=== PATIENT | male | born 1960 | race Caucasian/White ===

== ENCOUNTER 2019-08-02 10:24 | Day surgery (SDC) | payer BC ==
[2019-08-02] MEDS ORDERED: PROPOFOL 10 MG/ML VIAL IV ONE (10:25)
[2019-08-02] MEDS ORDERED: LIDOCAINE 2% MDV (20MG/ML) 20ML VIAL IV ONE (10:25)
--- NOTE | 2019-08-03 11:10 | Operative Note ---
OPERATION: COLONOSCOPY to the cecum. INDICATION: Colorectal cancer screening. ANESTHESIA: Intravenous sedation was administered by the department of anesthesiology and included Diprivan titrated to effect. PROCEDURE: Following informed consent from this alert individual including a discussion of the risks and benefits of the procedure and an opportunity for the patient to ask questions, the patient was in the left lateral decubitus position. A digital rectal examination was performed. No abnormalities were noted. Following this, the Olympus [id number] video colonoscope was inserted into the rectum without resistance. The rectal mucosa had a normal appearance with normal folds and distensibility. The sigmoid colon demonstrated a few scattered diverticula. The colonoscope was farther advanced up through the remainder of the bowel to the level of the cecum. The cecum was identified by noting the ileocecal valve and appendiceal orifice. Overall, the colon preparation was good. From the base of the cecum, the colonoscope was slowly withdrawn. No polyps were noted upon withdrawal. Retroflexion in the rectum was endoscopically unremarkable. Again scattered diverticula were seen in the sigmoid region. The instrument was straightened and removed. The patient tolerated the procedure well and was returned to the recovery area in stable condition. IMPRESSION: 1. Sigmoid diverticulosis. 2. Otherwise unremarkable colonoscopy to the cecum. RECOMMENDATIONS: The patient was advised to have recheck colonoscopy in 10 years' time or sooner should problems arise. Followup will otherwise be with Dr. Dallas. As always, thank you for allowing me to participate in the care of your patient. STEWART
== END 2019-08-02 12:35 | disposition home or self-care (01) ==
LOC: HOP 10:24
PROVIDERS: ATTEND Internal Medicine Gastroenterology
DX: Z12.11 Encounter for screening for malignant neoplasm of colon (principal); K57.30 Diverticulosis of large intestine without perforation or abscess without bleeding
CPT/HCPCS: 00812; G0121